=== PATIENT | female | born 1995 | race Caucasian/White ===

== ENCOUNTER 2018-02-07 20:26 | Emergency (ER) | payer BC, OTHER ==
[~2018-02-07] VITALS: Ht 172.7 cm; Wt 77.0 kg
[2018-02-07 20:28] VITALS: BP 111/80
[2018-02-07] MEDS ORDERED: ONDANSETRON ODT 4 MG ONE (21:24)
[2018-02-07 21:27] LABS: BASOPHILS # (AUTO) 0.02 x10^3/uL (0-0.3); BASOPHILS % (AUTO) 1 % (0-1); EOSINOPHILS # (AUTO) 0.05 x10^3/uL (0-0.8); EOSINOPHILS % (AUTO) 1 % (1-7); LYMPHOCYTES # (AUTO) 2.34 x10^3/uL (1-6.1); LYMPHOCYTES % (AUTO) 47 % (22-44); MD NO; MEAN CORPUSCULAR HEMOGLOBIN 32.1 pg (27.0-34.8); MEAN CORPUSCULAR HGB CONC 34.4 g/dL (32.4-35.8); MEAN CORPUSCULAR VOLUME 93.3 fL (80-100); MEAN PLATELET VOLUME 8.4 fL (7.4-10.4); MONOCYTES # (AUTO) 0.44 x10^3/uL (0-1.4); MONOCYTES % (AUTO) 9 % (2-9); NEUTROPHILS % (AUTO) 42 % (42-75); PLATELET COUNT 213 x10^3/uL (130-400); RED BLOOD COUNT 4.43 x10^6/uL (3.82-5.3); RED CELL DISTRIBUTION WIDTH 12.1 % (9.6-15.2)
[2018-02-07 21:28] LABS: CULTURE INDICATED? YES; MICROSCOPIC INDICATED
[2018-02-07] MEDS ORDERED: SODIUM CHLORIDE 0.9% 1,000ML IVBOLUS ONE (21:30)
[2018-02-07] MEDS ORDERED: ONDANSETRON ODT 4 MG PO ONE (21:30)
[2018-02-07] MEDS ORDERED: SODIUM CHLORIDE FLUSH 10ML SYR IVF ONE (21:30)
[2018-02-07 21:31] LABS: ANION GAP 7 mmol/L (5-15); CALCIUM 8.8 mg/dL (8.5-10.1); CHLORIDE 109 mmol/L (98-107); CREATININE 0.83 mg/dL (0.55-1.02)
[2018-02-07 21:32] LABS: ALANINE AMINOTRANSFERASE 24 U/L (12-78); ALBUMIN 3.7 g/dL (3.4-5.0)
[2018-02-07 21:36] LABS: ALKALINE PHOSPHATASE 44 U/L (45-117); BILIRUBIN,TOTAL 0.4 mg/dL (0.2-1.0); TOTAL PROTEIN 7.2 g/dL (6.4-8.2)
[2018-02-07] MEDS ORDERED: DICYCLOMINE 20 MG TABLET PO ONE (22:00)
[2018-02-07] MEDS ORDERED: KETOROLAC 30 MG/1 ML IVPush ONE (22:00)
[2018-02-07] MEDS ORDERED: KETOROLAC 30 MG/1 ML ONE (22:19)
[2018-02-07] MEDS ORDERED: DICYCLOMINE 20 MG TABLET ONE (22:19)
== END 2018-02-07 23:10 | disposition home or self-care (01) ==
LOC: ED 23:00
DX: R10.84 Generalized abdominal pain (principal); R11.2 Nausea with vomiting, unspecified; R19.7 Diarrhea, unspecified
CPT/HCPCS: 36415; 74021; 80053; 81001; 84703; 85025; 87077; 87086; 96360; 96374; 99285; J1885; J7030; Q0162; 87186

== ENCOUNTER 2019-01-13 01:47 | Emergency (ER) | payer BC ==
[~2019-01-13] VITALS: Ht 172.7 cm; Wt 86.8 kg
[2019-01-13 01:51] VITALS: BP 127/77
--- NOTE | 2019-01-13 02:12 | NUR ---
pt changed mind and stated she will see ob in am, signed req for dc at reg.
== END 2019-01-13 02:14 | disposition left against medical advice (07) ==
LOC: ED 02:08
DX: R10.9 Unspecified abdominal pain (principal); Z53.21 Procedure and treatment not carried out due to patient leaving prior to being seen by health care provider

== ENCOUNTER 2020-12-25 12:54 | Emergency (ER) | payer OTHER ==
[~2020-12-25] VITALS: Ht 177.8 cm; Wt 86.3 kg
[2020-12-25] MEDS ORDERED: ONDANSETRON 2MG/ML, 2ML ONE (13:43)
[2020-12-25] MEDS ORDERED: SODIUM CHLORIDE 0.9% 1,000ML IVBOLUS ONE (14:00)
[2020-12-25] MEDS ORDERED: ONDANSETRON ODT 4 MG PO ONE (14:00)
--- NOTE | 2020-12-25 14:15 | NUR ---
PT. IS A & O X 4 WITH A GSC OF 15. PT. IS PINK, WARM AND DRY. LUNGS ARE CTA. PT.'S ABD. IS SOFT AND FLAT WITH BS +. PT. HAS C/O RIGHT LOWER QUADRANT PAIN. PULSES ARE +2 THROUGHOUT WITH CAP REFILL LESS THAN 3 SECONDS. PT. STATES ONE DAY HX OF NAUSEA, VOMITING AND DIARRHEA WITH C/O URINARY FREQUENCY AND DYSURIA. IV ACCESS ESTABLISHED WITH A NS BOLUS AND ZOFRAN 4 MG GIVEN IVP. PT.'S VSS. SIDERAILS REMAIN UP X 2 WITH THE CALL LIGHT IN REACH. PT.'S HOB IS ELEVATED GREATER THAN 30 DEGREES AND SHE HAS BLANKETS IN PLACE FOR WARMTH.
[2020-12-25 14:26] LABS: BASOPHILS % (AUTO) 0 % (0-1); EOSINOPHILS % (AUTO) 0 % (1-7); LYMPHOCYTES % (AUTO) 11 % (22-44); MEAN CORPUSCULAR HEMOGLOBIN 31.7 pg (27.0-34.8); MEAN CORPUSCULAR HGB CONC 34.4 g/dL (32.4-35.8); MEAN PLATELET VOLUME 8.4 fL (7.4-10.4); MONOCYTES % (AUTO) 6 % (2-9); NEUTROPHILS % (AUTO) 82 % (42-75); PLATELET COUNT 239 x10^3/uL (130-400); RED BLOOD COUNT 4.67 x10^6/uL (3.82-5.3); RED CELL DISTRIBUTION WIDTH 12.3 % (9.6-15.2)
[2020-12-25] MEDS ORDERED: ONDANSETRON 2MG/ML, 2ML IVPush ONE (14:30)
[2020-12-25] MEDS ORDERED: ACETAMINOPHEN 500 MG TABLET PO ONE (14:30)
[2020-12-25 14:31] LABS: MD NO
[2020-12-25 14:34] LABS: ALANINE AMINOTRANSFERASE 48 U/L (12-78); ALBUMIN 4.2 g/dL (3.4-5.0); ANION GAP 5 mmol/L (5-15); CALCIUM 9.4 mg/dL (8.5-10.1); CHLORIDE 109 mmol/L (98-107); CREATININE 0.81 mg/dL (0.55-1.02)
[2020-12-25 14:37] LABS: ALKALINE PHOSPHATASE 58 U/L (45-117)
--- NOTE | 2020-12-25 14:48 | NUR ---
REPORT FROM CYNTHIA ESCOBAR
[2020-12-25] MEDS ORDERED: ACETAMINOPHEN 500 MG TABLET ONE (15:06)
--- NOTE | 2020-12-25 15:30 | NUR ---
ua collected and sent to lab
[2020-12-25 15:48] LABS: HCG UR SG 1.007 (1.003-1.030)
[2020-12-25 15:49] LABS: MICROSCOPIC INDICATED
[2020-12-25 17:54] VITALS: BP 100/68
== END 2020-12-25 17:56 | disposition home or self-care (01) ==
LOC: ED 13:59
DX: N39.0 Urinary tract infection, site not specified (principal); R19.7 Diarrhea, unspecified; R11.10 Vomiting, unspecified
CPT/HCPCS: 36415; 80053; 81001; 81025; 85025; 87077; 87086; 96361; 96374; 99283; J2405; J7030; 87186